=== PATIENT | male | born 1940 | race Caucasian/White ===

== ENCOUNTER 2023-08-15 07:30 | Emergency (ER) | payer OTHER, MEDICARE ==
[~2023-08-15] VITALS: Ht 177.8 cm; Wt 74.4 kg
[~2023-08-15 07:30] MED LIST: BRUKINSA80 MG PO; CEFDINIR300 MG PO; IRON (FERROUS S50 MG PO; MEDDOSEPAK PO; PROVENTIL0.083 % IN; SYMBICORT 80-4.5MCG IN; VENTOLIN HFA108 MCG IN; ZPAK PO
[2023-08-15] MEDS ORDERED: ALBUTEROL SULFATE 2.5 MG VIAL IN ONE (08:15)
[2023-08-15 08:28] LABS: BASO% 0.3 % (0-3); EOS% 0.1 % (0-8); HEMATOCRIT 43.8 % (39.0-50.0); HEMOGLOBIN 14.2 g/dl (14.0-18.0); IMMATURE GRANULOCYTES 0.3 % (0.0-5.0); LYMPH% 3.1 % (15-41); MEAN CELL VOLUME 96.9 fL CALC (80.0-100.0); MEAN CORPUSCULAR HGB 31.4 pG CALC (26.0-32.0); MEAN CORPUSCULAR HGB CONC 32.4 g/dL CAL (32.0-36.0); MONO% 2.9 % (2-13); NEUT# 17.86 thou/uL (1.82-7.42); NEUT% 93.3 % (42-76); RED BLOOD COUNT 4.52 mill/uL (4.70-6.10)
--- NOTE | 2023-08-15 08:35 | NUR ---
PEAK FLOW PERFORMED PRE AND POST ALBUTEROL NEBULIZER TX. PT ACHIEVED AVERAGE OF 250 PRE AND POST WITH GOOD EFFORT.
[2023-08-15 08:59] LABS: ALBUMIN 4.1 g/dL (3.2-5.0); CREATININE 1.1 mg/dL (0.7-1.3); POTASSIUM 4.4 mmol/l (3.5-5.1); TOTAL PROTEIN 7.5 g/dL (6.3-8.2)
[2023-08-15 09:00] LABS: BILIRUBIN, TOTAL 1.6 mg/dL (0.2-1.3)
[2023-08-15] MEDS ORDERED: PREDNISONE20 MG PO (11:00)
[2023-08-15 11:04] VITALS: BP 154/87
== END 2023-08-15 11:09 | disposition home or self-care (01) | DRG 192 ==
LOC: ED 07:30
PROVIDERS: Family Medicine
DX: J44.1 Chronic obstructive pulmonary disease with (acute) exacerbation (principal); D75.9 Disease of blood and blood-forming organs, unspecified; Z87.01 Personal history of pneumonia (recurrent)